=== PATIENT | female | born 1990 | race Caucasian/White ===

== ENCOUNTER 2021-03-06 11:37 | Emergency (ER) | payer OTHER, SELFPAY ==
[2021-03-06 11:37] VITALS: BP 119/84; PULSE 87; RESP 16; TEMP 37.1; O2SAT 99
--- NOTE | 2021-03-06 11:42 | ED.GENADULT ---
HPI - General Adult General Chief complaint: Recheck/Abnormal Lab/Rx Stated complaint: Needs COVID Test, Exposure Time Seen by Provider: 03/06/21 11:41 Source: patient Mode of arrival: Ambulatory History of Present Illness HPI narrative: Patient is a 30-year-old female. Is immunized against COVID-19. Is here for testing. Patient states that her ex- who is also immunized against COVID-19 tested positive yesterday. His symptoms were feeling tired and fatigued no fever. She was in close contact with him for the days preceding his positive results. She is unsure as to when he initially developed symptoms but she thought it was just within the past 12-24 hours. Patient is currently asymptomatic. Review of Systems Constitutional Constitutional: Denies fever(s) Cardiovascular Cardiovascular: Denies dyspnea Respiratory Respiratory: Denies cough and Denies dyspnea Gastrointestinal Gastrointestinal: Denies nausea and Denies vomiting Musculoskeletal Musculoskeletal: Denies myalgias Neurologic Neurologic: Reports system reviewed and no additional complaints, except as documented Hematologic/Lymphatic On Anticoagulants: No Patient History Social History Smoking Status: Never smoker Exam Initial Vital Signs Initial Vital Signs: Vital Signs Temperature 98.7 F 03/06/21 11:37 Pulse Rate 87 03/06/21 11:37 Respiratory Rate 16 03/06/21 11:37 Blood Pressure 119/84 03/06/21 11:37 Pulse Oximetry 99 03/06/21 11:37 Const General: cooperative, healthy appearing and comfortable HENMT Head: normal to inspection Resp Effort & Inspection: normal respiratory effort Cardio Rate: regular rate GI Inspection: normal to inspection Skin General: no rashes or lesions noted Neuro General: patient alert, patient awake and patient oriented x3 Extrem General: normal to inspection Psych Appearance: grossly normal and well kempt Course Orders Ordered: ED Orders 03/06/21 11:40 COVID19 - 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 She is having no symptoms. Her COVID test is negative. I did discuss with her that her needs to quarantine himself and she stated that he knew that. Her kids were going to get tested tomorrow. She was informed that she potentially could become positive over the next couple days and at this happened she needs to consider getting retested. She expressed understanding and agreement of return precautions. Discharge Plan Departure Patient Disposition: Home Clinical Impression: Encounter for screening for COVID-19 Activity Restrictions/Additional Instructions: Your COVID-19 test today was negative however depending on your exposure you could potentially start to develop symptoms over the next couple days. If this happens you should consider retesting yourself. Return to the emergency department for any new or worsening symptoms
[2021-03-06 12:11] LABS: COVID19 - ADMIT (NP swab/PCR) Negative (Negative)
== END 2021-03-06 12:26 | disposition home or self-care (01) ==
PROVIDERS: Emergency Provider Emergency Medicine
DX: Z20.822 Contact with and (suspected) exposure to COVID-19 (principal)
CPT/HCPCS: 87635; 99281; C9803